=== PATIENT | male | born 1970 | race Two or more races ===

== ENCOUNTER 2020-03-03 08:46 | Day surgery (SDC) | payer OTHER | END 2020-03-03 14:15 | disposition home or self-care (01) | LOC: AMB-ENDOS 08:46 | PROVIDERS: ATTEND Colon & Rectal Surgery | DX: K62.89 Other specified diseases of anus and rectum (principal); K64.2 Third degree hemorrhoids; Z12.11 Encounter for screening for malignant neoplasm of colon ==